=== PATIENT | male | born 1945 | race Caucasian/White ===

== ENCOUNTER 2016-08-19 13:35 | Emergency (ER) | payer MEDICARE, OTHER ==
[2016-08-19] MEDS ORDERED: Tetracaine HCl 0.5% Ophth Soln 2 ML Bottle ONE (13:43)
[2016-08-19] MEDS ORDERED: Fluorescein Opthalmic Strip ONE (13:43)
== END 2016-08-19 14:49 | disposition home or self-care (01) ==
LOC: BURERS 13:35
DX: Z77.098 Contact with and (suspected) exposure to other hazardous, chiefly nonmedicinal, chemicals (principal); E78.5 Hyperlipidemia, unspecified; Z79.899 Other long term (current) drug therapy
CPT/HCPCS: 99283

== ENCOUNTER 2024-03-07 12:10 | Emergency (ER) | payer MEDICARE, OTHER ==
[2024-03-07] MEDS ORDERED: Acetaminophen 500 MG TAB ONE (12:59)
[2024-03-07] MEDS ORDERED: traMADol HCl 50 MG TAB ONE (13:17)
== END 2024-03-07 13:44 | disposition home or self-care (01) ==
LOC: BURERS 12:10
DX: S00.03XA Contusion of scalp, initial encounter (principal); S00.83XA Contusion of other part of head, initial encounter; R04.0 Epistaxis; V89.2XXA Person injured in unspecified motor-vehicle accident, traffic, initial encounter
CPT/HCPCS: 70450; 70486; 71045